=== PATIENT | female | born 2000 | race Caucasian/White ===

== ENCOUNTER 2019-04-27 20:29 | Emergency (ER) | payer SELFPAY ==
[~2019-04-27] VITALS: Ht 175.3 cm; Wt 72.7 kg
[2019-04-27] MEDS ORDERED: NEXPLANON68 MG ID (20:35)
[2019-04-27 20:59] LABS: EOS % 0.4 % (0.1-4.0); HEMATOCRIT 37.6 % (35.0-45.0); HEMOGLOBIN 12.6 g/dL (12.0-15.0); LYMPH# 2.8 (1.20-3.40); MEAN CELL VOLUME 88 fl (78-95); MEAN CORPUSCULAR HEMOGLOBIN 30 pg (26-32); MEAN CORPUSCULAR HGB CONC 34 g/dL (33-37); MEAN PLATELET VOLUME 10.3 fl (7.4-10.4); MONO # 0.9 (0.10-0.60); NEU # 5.2 (1.40-6.50); PLATELET COUNT 249 K/mm3 (130-400); RED BLOOD COUNT 4.26 M/mm3 (4.10-5.30); RED CELL DISTRIBUTION WIDTH 13.3 % (11.5-14.5); WHITE BLOOD COUNT 9.1 K/mm3 (4.8-10.8)
[2019-04-27 21:09] LABS: ALBUMIN 4.5 g/dL (3.5-5.0); POTASSIUM 3.7 mmol/L (3.5-5.1)
[2019-04-27 21:11] LABS: TOTAL PROTEIN 7.8 g/dL (6.4-8.3)
[2019-04-27 21:13] LABS: TOTAL BILIRUBIN 0.4 mg/dL (0.2-1.2)
[2019-04-27 23:27] LABS: URINE APPEARANCE HAZY; URINE BILIRUBIN NEGATIVE (NEGATIVE); URINE BLOOD NEGATIVE (NEGATIVE); URINE COLOR YELLOW; URINE GLUCOSE NEGATIVE (NEGATIVE); URINE KETONE 1+ (NEGATIVE); URINE NITRATE NEGATIVE (NEGATIVE); URINE PROTEIN(semi-quant) 1+ mg/dL (NEGATIVE); URINE UROBILINOGEN NORMAL (NORMAL)
[2019-04-27 23:28] LABS: URINE WBC >50 /hpf (0-3)
[2019-04-27 23:29] LABS: URINE MUCUS PRESENT (NOT PRESENT)
[2019-04-27 23:31] LABS: URINE LEUKOCYTE ESTERASE 1+ (NEGATIVE)
[2019-04-28] MEDS ORDERED: BACTRIM DS TAB1 EACH PO (00:04)
[2019-04-28 00:20] VITALS: BP 114/71
== END 2019-04-28 00:20 | disposition home or self-care (01) ==
LOC: ED 20:29
PROVIDERS: Physician Assistant
DX: S01.81XA Laceration without foreign body of other part of head, initial encounter (principal); R55 Syncope and collapse; N39.0 Urinary tract infection, site not specified; W01.198A Fall on same level from slipping, tripping and stumbling with subsequent striking against other object, initial encounter; Y92.838 Other recreation area as the place of occurrence of the external cause
CPT/HCPCS: J7030

== ENCOUNTER 2019-05-03 13:48 | Emergency (ER) | payer SELFPAY ==
[~2019-05-03 13:48] MED LIST: BACTRIM DS TAB1 EACH PO; NEXPLANON68 MG ID
[2019-05-03 14:02] VITALS: BP 124/71
== END 2019-05-03 14:15 | disposition home or self-care (01) ==
LOC: ED 13:48
DX: Z48.02 Encounter for removal of sutures (principal)